=== PATIENT | female | born 1970 | race Caucasian/White ===

== ENCOUNTER 2017-09-15 07:32 | Inpatient (IN) | payer MEDICAID ==
[~2017-09-15] VITALS: Ht 162.6 cm; Wt 92.2 kg
[2017-09-15] MEDS ORDERED: SODIUM CHLORIDE 0.9% 1,000ML IVBOLUS ONE ×2 (08:30→09:30)
[2017-09-15 08:49] LABS: BASOPHILS # (AUTO) 0.01 x10^3/uL (0-0.1); BASOPHILS % (AUTO) 0 % (0-1); EOSINOPHILS % (AUTO) 5 % (1-7); LYMPHOCYTES # (AUTO) 1.96 x10^3/uL (1-3.4); LYMPHOCYTES % (AUTO) 19 % (22-44); MD NO; MEAN CORPUSCULAR HEMOGLOBIN 30.8 pg (27.0-34.8); MEAN CORPUSCULAR HGB CONC 33.9 g/dL (32.4-35.8); MEAN CORPUSCULAR VOLUME 90.8 fL (80-100); MEAN PLATELET VOLUME 6.6 fL (7.4-10.4); MONOCYTES # (AUTO) 0.73 x10^3/uL (0.2-0.8); MONOCYTES % (AUTO) 7 % (2-9); NEUTROPHILS # (AUTO) 7.23 x10^3/uL (1.8-6.8); NEUTROPHILS % (AUTO) 69 % (42-75); PLATELET COUNT 285 x10^3/uL (130-400); RED BLOOD COUNT 5.26 x10^6/uL (3.82-5.3); RED CELL DISTRIBUTION WIDTH 18.5 % (9.6-15.2)
[2017-09-15 09:05] LABS: ALANINE AMINOTRANSFERASE 32 U/L (12-78); ANION GAP 16 mmol/L (5-15); CALCIUM 9.3 mg/dL (8.5-10.1); CHLORIDE 103 mmol/L (98-107); INTERNATIONAL NORMALIZED RATIO 0.98 (0.93-1.1); PROTHROMBIN TIME 10.2 Seconds (9.6-11.5)
[2017-09-15 09:08] LABS: ALKALINE PHOSPHATASE 128 U/L (45-117); BILIRUBIN,TOTAL 0.8 mg/dL (0.2-1.0); TOTAL PROTEIN 8.3 g/dL (6.4-8.2)
[2017-09-15] MEDS ORDERED: PIPERACILLIN/TAZO/PMX 4.5GM 100 ML IVPB ONE (09:30)
[2017-09-15 10:16] LABS: MICROSCOPIC INDICATED
[2017-09-15 10:19] LABS: CULTURE INDICATED? YES
[2017-09-15] MEDS ORDERED: ALBUTEROL/IPRATROPIUM 2.5MG/0.5MG, 3 ML NPPB ONE (10:30)
[2017-09-15] MEDS ORDERED: ALBUTEROL/IPRATROPIUM 2.5MG/0.5MG, 3 ML ONE (10:38)
[2017-09-15] MEDS ORDERED: METH15TA PO (10:57)
[2017-09-15] MEDS ORDERED: VANCOMYCIN PER PHARMACY MC PRN (11:30)
[2017-09-15] MEDS ORDERED: PHARMACOKINETIC CONSULTATION MC ONE (11:30)
[2017-09-15] MEDS ORDERED: VANCOMYCIN 1,600 MG in SODIUM CHLORIDE 0.9% 250 ML IV ONE (12:00)
[2017-09-15 12:07] LABS: FREE T4 (FREE THYROXINE) 0.58 ng/dL (0.76-1.46); THYROID STIMULATING HORMONE 3.56 mIU/L (0.358-3.740)
[2017-09-15] MEDS ORDERED: DOCUSATE 100 MG CAPSULE PO PRN (12:30)
[2017-09-15] MEDS ORDERED: PHARMACY MAY ADJ FOR RENAL FX MC PRN (12:30)
[2017-09-15] MEDS ORDERED: FUROSEMIDE 40 MG/4 ML IV ONE (12:30)
[2017-09-15] MEDS ORDERED: BISACODYL 10 MG SUPP PR PRN (12:30)
[2017-09-15] MEDS ORDERED: ACETAMINOPHEN 325 MG TABLET PO PRN (12:30)
[2017-09-15] MEDS ORDERED: hydrALAzine 20 MG/ML, 1ML IVPush PRN (12:30)
[2017-09-15] MEDS ORDERED: ONDANSETRON 2MG/ML, 2ML IVPush PRN (12:30)
[2017-09-15] MEDS ORDERED: POLYETHYLENE GLYCOL 17 GM PACKET PO PRN (12:30)
[2017-09-15] MEDS ORDERED: PIPERACILLIN/TAZO/PMX 3.375GM 50 ML IV SCH (13:30)
[2017-09-15 13:44] VITALS: BP 116/61
[2017-09-15] MEDS: LINEZOLID PMX 600MG/300ML 300 ML IV SCH (14:30)
[2017-09-15] MEDS: HEPARIN 5,000 UNITS/ML, 1ML SQ SCH (16:31)
[2017-09-15] MEDS: LACTATED RINGERS 1,000 ML IV SCH (16:39)
[2017-09-15 17:12] LABS: RAPID INFLUENZA A Negative (Negative); RAPID INFLUENZA B Negative (Negative)
[2017-09-15 18:44] VITALS: BP 95/63
[2017-09-15 19:26] LABS: TROPONIN I < 0.015 ng/mL (0.000-0.045)
[2017-09-15] MEDS: PIPERACILLIN/TAZO 3.375 GM in DEXTROSE 5% 50 ML IV SCH (20:20)
[2017-09-15] MEDS: HYDROcodone/APAP 5/325 TABLET PO PRN (20:20)
[2017-09-15 20:24] LABS: TROPONIN I < 0.015 ng/mL (0.000-0.045)
[2017-09-16] MEDS: LACTATED RINGERS 1,000 ML IV SCH (00:15)
[2017-09-16] MEDS: HEPARIN 5,000 UNITS/ML, 1ML SQ SCH ×3 (00:15→17:14)
[2017-09-16 00:52] VITALS: BP 100/67
[2017-09-16 01:09] LABS: TROPONIN I < 0.015 ng/mL (0.000-0.045)
[2017-09-16] MEDS: PIPERACILLIN/TAZO 3.375 GM in DEXTROSE 5% 50 ML IV SCH ×4 (02:35→20:10)
[2017-09-16 03:02] LABS: CLOSTRIDIUM DIFFICILE ANTIGEN NEGATIVE; CLOSTRIDIUM DIFFICILE TOXIN NEGATIVE (Negative)
[2017-09-16] MEDS: LINEZOLID PMX 600MG/300ML 300 ML IV SCH ×2 (03:12→15:48)
[2017-09-16 06:05] LABS: BASOPHILS # (AUTO) 0.01 x10^3/uL (0-0.1); BASOPHILS % (AUTO) 0 % (0-1); EOSINOPHILS # (AUTO) 0.47 x10^3/uL (0-0.4); EOSINOPHILS % (AUTO) 8 % (1-7); LYMPHOCYTES # (AUTO) 1.81 x10^3/uL (1-3.4); LYMPHOCYTES % (AUTO) 30 % (22-44); MD NO; MEAN CORPUSCULAR HEMOGLOBIN 30.8 pg (27.0-34.8); MEAN CORPUSCULAR HGB CONC 33.7 g/dL (32.4-35.8); MEAN CORPUSCULAR VOLUME 91.3 fL (80-100); MEAN PLATELET VOLUME 6.6 fL (7.4-10.4); MONOCYTES # (AUTO) 0.41 x10^3/uL (0.2-0.8); MONOCYTES % (AUTO) 7 % (2-9); NEUTROPHILS # (AUTO) 3.39 x10^3/uL (1.8-6.8); NEUTROPHILS % (AUTO) 56 % (42-75); PLATELET COUNT 215 x10^3/uL (130-400); RED BLOOD COUNT 4.38 x10^6/uL (3.82-5.3); RED CELL DISTRIBUTION WIDTH 18.6 % (9.6-15.2)
[2017-09-16 06:12] LABS: CALCIUM 8.4 mg/dL (8.5-10.1); CHLORIDE 113 mmol/L (98-107)
[2017-09-16 06:16] LABS: ALANINE AMINOTRANSFERASE 23 U/L (12-78); ALBUMIN 3.4 g/dL (3.4-5.0); ALKALINE PHOSPHATASE 93 U/L (45-117); ANION GAP 9 mmol/L (5-15); BILIRUBIN,TOTAL 0.7 mg/dL (0.2-1.0); CREATININE 1.77 mg/dL (0.55-1.02); TOTAL PROTEIN 6.8 g/dL (6.4-8.2)
[2017-09-16 08:19] VITALS: BP 102/73
[2017-09-16] MEDS ORDERED: LACTATED RINGERS 1,000 ML IV SCH (12:30)
[2017-09-16 14:48] VITALS: BP 159/93
[2017-09-16 20:00] VITALS: BP 130/72
[2017-09-16] MEDS: HYDROcodone/APAP 5/325 TABLET PO PRN (23:55)
[2017-09-17] MEDS: PIPERACILLIN/TAZO 3.375 GM in DEXTROSE 5% 50 ML IV SCH ×2 (02:29→08:12)
[2017-09-17] MEDS: HEPARIN 5,000 UNITS/ML, 1ML SQ SCH (02:30)
[2017-09-17 02:41] VITALS: BP 135/84
[2017-09-17] MEDS: LINEZOLID PMX 600MG/300ML 300 ML IV SCH (03:10)
[2017-09-17 05:57] LABS: ANION GAP 9 mmol/L (5-15); CALCIUM 9.1 mg/dL (8.5-10.1); CHLORIDE 110 mmol/L (98-107)
[2017-09-17 05:58] LABS: CREATININE 1.78 mg/dL (0.55-1.02)
[2017-09-17 06:04] LABS: BASOPHILS # (AUTO) 0.01 x10^3/uL (0-0.1); BASOPHILS % (AUTO) 0 % (0-1); EOSINOPHILS # (AUTO) 0.02 x10^3/uL (0-0.4); EOSINOPHILS % (AUTO) 0 % (1-7); LYMPHOCYTES # (AUTO) 1.35 x10^3/uL (1-3.4); LYMPHOCYTES % (AUTO) 14 % (22-44); MD NO; MEAN CORPUSCULAR HEMOGLOBIN 30.7 pg (27.0-34.8); MEAN CORPUSCULAR HGB CONC 33.5 g/dL (32.4-35.8); MEAN CORPUSCULAR VOLUME 91.8 fL (80-100); MEAN PLATELET VOLUME 6.9 fL (7.4-10.4); MONOCYTES # (AUTO) 0.35 x10^3/uL (0.2-0.8); MONOCYTES % (AUTO) 4 % (2-9); NEUTROPHILS # (AUTO) 7.73 x10^3/uL (1.8-6.8); NEUTROPHILS % (AUTO) 82 % (42-75); PLATELET COUNT 240 x10^3/uL (130-400); RED CELL DISTRIBUTION WIDTH 18.4 % (9.6-15.2)
[2017-09-17 06:25] VITALS: BP 144/84
[2017-09-17] MEDS ORDERED: CEFD300C37 PO (11:16)
[2017-09-17] MEDS ORDERED: LINE600T37 PO (11:16)
[2017-09-17 12:13] VITALS: BP 132/86
== END 2017-09-17 12:45 | disposition home or self-care (01) | DRG 872 ==
LOC: ED 08:23 → EDIP 10:47 → 4WST 13:17
PROVIDERS: ADMIT Family Medicine; ATTEND Family Medicine
DX: A41.9 Sepsis, unspecified organism (principal); E87.2 Acidosis; N17.9 Acute kidney failure, unspecified; D49.7 Neoplasm of unspecified behavior of endocrine glands and other parts of nervous system; M06.9 Rheumatoid arthritis, unspecified; M19.90 Unspecified osteoarthritis, unspecified site; J06.9 Acute upper respiratory infection, unspecified
CPT/HCPCS: 36415; 71045; 71250; 80048; 80053; 81001; 82164; 82436; 82570; 83605; 83735; 84100; 84133; 84145; 84300; 84439; 84443; 84484; 85025; 85610; 87040; 87070; 87081; 87086; 87205; 87324; 87400; 87880; 93005; 94640; 96360; 96361; J1644; J2020; J2543; J3370; J7620; J7030; J7050; J7120; J7512

== ENCOUNTER 2018-03-15 19:53 | Emergency (ER) | payer SELFPAY ==
[~2018-03-15] VITALS: Ht 162.6 cm; Wt 89.4 kg
[~2018-03-15 19:53] MED LIST: CEFD300C37 PO; LINE600T37 PO; METH15TA PO
[2018-03-15] MEDS ORDERED: ALBUTEROL/IPRATROPIUM 2.5MG/0.5MG, 3 ML ONE (20:26)
[2018-03-15] MEDS ORDERED: ALBUTEROL/IPRATROPIUM 2.5MG/0.5MG, 3 ML NPPB ONE (20:30)
[2018-03-15 21:20] LABS: BASOPHILS # (AUTO) 0.05 x10^3/uL (0-0.1); BASOPHILS % (AUTO) 1 % (0-1); EOSINOPHILS # (AUTO) 0.38 x10^3/uL (0-0.4); EOSINOPHILS % (AUTO) 6 % (1-7); LYMPHOCYTES # (AUTO) 1.75 x10^3/uL (1-3.4); LYMPHOCYTES % (AUTO) 28 % (22-44); MD NO; MEAN CORPUSCULAR HEMOGLOBIN 31.3 pg (27.0-34.8); MEAN CORPUSCULAR HGB CONC 35.2 g/dL (32.4-35.8); MEAN CORPUSCULAR VOLUME 88.9 fL (80-100); MONOCYTES # (AUTO) 0.12 x10^3/uL (0.2-0.8); MONOCYTES % (AUTO) 2 % (2-9); NEUTROPHILS % (AUTO) 63 % (42-75); PLATELET COUNT 135 x10^3/uL (130-400); RED BLOOD COUNT 5.06 x10^6/uL (3.82-5.3); RED CELL DISTRIBUTION WIDTH 14.5 % (9.6-15.2)
[2018-03-15 21:25] LABS: ALBUMIN 3.7 g/dL (3.4-5.0); ANION GAP 8 mmol/L (5-15); CALCIUM 8.4 mg/dL (8.5-10.1); CHLORIDE 108 mmol/L (98-107); CREATININE 1.47 mg/dL (0.55-1.02)
[2018-03-15 21:47] VITALS: BP 138/70
== END 2018-03-15 22:15 | disposition home or self-care (01) ==
LOC: ED 22:00
DX: J20.9 Acute bronchitis, unspecified (principal)
CPT/HCPCS: 36415; 71046; 80048; 82040; 85025; 94640; 99285; J7620

== ENCOUNTER 2018-05-24 12:40 | Emergency (ER) | payer OTHER ==
[~2018-05-24] VITALS: Ht 162.6 cm; Wt 89.8 kg
[2018-05-24] MEDS ORDERED: HYDROcodone/APAP 5/325 TABLET ONE (13:45)
[2018-05-24] MEDS ORDERED: HYDROcodone/APAP 5/325 TABLET PO ONE (14:00)
[2018-05-24 15:08] VITALS: BP 148/79
== END 2018-05-24 15:18 | disposition home or self-care (01) ==
LOC: ED 15:12
DX: S42.201A Unspecified fracture of upper end of right humerus, initial encounter for closed fracture (principal); M06.9 Rheumatoid arthritis, unspecified; W01.0XXA Fall on same level from slipping, tripping and stumbling without subsequent striking against object, initial encounter; Y93.89 Activity, other specified; Y92.69 Other specified industrial and construction area as the place of occurrence of the external cause; Y99.8 Other external cause status
CPT/HCPCS: 99283

== ENCOUNTER 2018-11-18 21:43 | Emergency (ER) | payer OTHER ==
[~2018-11-18] VITALS: Ht 162.6 cm; Wt 90.9 kg
--- NOTE | 2018-11-18 21:54 | NUR ---
assessment made. chart up for MD to see.
[2018-11-18] MEDS ORDERED: LIDOCAINE 2% VISCOUS 15 ML UDC MM STA (22:01)
[2018-11-18] MEDS ORDERED: LIDOCAINE-MPF 1%, 5ML ONE (22:05)
[2018-11-18] MEDS ORDERED: LIDOCAINE 2% VISCOUS 15 ML UDC ONE (22:05)
[2018-11-18] MEDS ORDERED: HYDROcodone/APAP 5/325 TABLET ONE (22:06)
--- NOTE | 2018-11-18 22:15 | NUR ---
patient medicated for pain.
[2018-11-18] MEDS ORDERED: LIDOCAINE 1%, 10ML INFIL ONE (22:30)
[2018-11-18] MEDS ORDERED: HYDROcodone/APAP 5/325 TABLET PO ONE (22:30)
--- NOTE | 2018-11-18 22:36 | NUR ---
I & D performed by ART.
[2018-11-18 22:43] VITALS: BP 132/81
--- NOTE | 2018-11-18 22:43 | NUR ---
patient discharged with prescription and instruction. verbalized understanding.
== END 2018-11-18 22:46 | disposition home or self-care (01) ==
LOC: ED 21:52
DX: K04.7 Periapical abscess without sinus (principal)
CPT/HCPCS: 41800; 99283; J3490

== ENCOUNTER 2019-07-31 03:04 | Emergency (ER) | payer OTHER ==
[~2019-07-31] VITALS: Ht 162.6 cm; Wt 90.4 kg
[~2019-07-31 03:04] MED LIST changes: +LINE600T12 PO; -LINE600T37 PO
--- NOTE | 2019-07-31 03:26 | NUR ---
INITIAL CONTACT WITH PT. ASSESSMENT DONE. MD AT BEDSIDE.
--- NOTE | 2019-07-31 03:28 | NUR ---
MARITZA RN: RT PAGED.
[2019-07-31] MEDS ORDERED: ALBUTEROL SULFATE 2.5 MG/3 ML NPPB ONE (03:30)
[2019-07-31 03:41] LABS: BASOPHILS # (AUTO) 0.02 x10^3/uL (0-0.1); BASOPHILS % (AUTO) 0 % (0-1); EOSINOPHILS # (AUTO) 0.39 x10^3/uL (0-0.4); EOSINOPHILS % (AUTO) 6 % (1-7); LYMPHOCYTES % (AUTO) 19 % (22-44); MD NO; MEAN CORPUSCULAR HEMOGLOBIN 29.5 pg (27.0-34.8); MEAN CORPUSCULAR HGB CONC 34.1 g/dL (32.4-35.8); MEAN CORPUSCULAR VOLUME 86.6 fL (80-100); MEAN PLATELET VOLUME 7.5 fL (7.4-10.4); MONOCYTES # (AUTO) 0.41 x10^3/uL (0.2-0.8); MONOCYTES % (AUTO) 6 % (2-9); NEUTROPHILS % (AUTO) 69 % (42-75); PLATELET COUNT 125 x10^3/uL (130-400); RED BLOOD COUNT 5.78 x10^6/uL (3.82-5.3); RED CELL DISTRIBUTION WIDTH 14.3 % (9.6-15.2)
[2019-07-31] MEDS ORDERED: ALBUTEROL/IPRATROPIUM 2.5MG/0.5MG, 3 ML ONE (03:47)
[2019-07-31 03:51] LABS: ANION GAP 7 mmol/L (5-15); CALCIUM 9.3 mg/dL (8.5-10.1); CHLORIDE 107 mmol/L (98-107); CREATININE 1.82 mg/dL (0.55-1.02)
[2019-07-31 03:54] LABS: TROPONIN I < 0.015 ng/mL (0.000-0.045)
--- NOTE | 2019-07-31 04:11 | NUR ---
REPORT TO BALA SANABRIA. CARE RELEASED.
--- NOTE | 2019-07-31 04:18 | NUR ---
REPROT RECEIVED FROM BALA MAJOR. PLAN OF CARE DISCUSSED.
[2019-07-31 04:34] VITALS: BP 114/71
== END 2019-07-31 04:37 | disposition home or self-care (01) ==
LOC: ED 04:22
DX: J45.909 Unspecified asthma, uncomplicated (principal); M06.9 Rheumatoid arthritis, unspecified
CPT/HCPCS: 36415; 71045; 80048; 82040; 84484; 85025; 93005; 94640; 99284; J7512; J7613

== ENCOUNTER 2019-12-31 21:17 | Emergency (ER) | payer SELFPAY ==
[~2019-12-31] VITALS: Ht 162.6 cm; Wt 86.0 kg
--- NOTE | 2019-12-31 21:30 | NUR ---
assumed care of pt. pt here for R foot pain since last nocs. pt reports swelling and difficulty walking. denies trauma. pt reports no relief of pain after medications [employer]. foot elevated for comfort. family at bedside. med student at bedside for eval
[2019-12-31] MEDS ORDERED: MORPHINE SULFATE 4 MG/ML, 1ML IVPush PRN (22:00)
[2019-12-31] MEDS ORDERED: KETOROLAC 30 MG/1 ML IVPush ONE (22:00)
[2019-12-31] MEDS ORDERED: KETOROLAC 30 MG/1 ML ONE (22:10)
[2019-12-31] MEDS ORDERED: MORPHINE SULFATE 4 MG/ML, 1ML ONE (22:10)
[2019-12-31 22:24] LABS: BASOPHILS # (AUTO) 0.02 x10^3/uL (0-0.1); BASOPHILS % (AUTO) 0 % (0-1); EOSINOPHILS # (AUTO) 0.27 x10^3/uL (0-0.4); EOSINOPHILS % (AUTO) 3 % (1-7); HCT (SEDRATE) 45.9 % (34.6-47.8); LYMPHOCYTES # (AUTO) 1.77 x10^3/uL (1-3.4); LYMPHOCYTES % (AUTO) 21 % (22-44); MD NO; MEAN CORPUSCULAR HEMOGLOBIN 29.2 pg (27.0-34.8); MEAN CORPUSCULAR HGB CONC 33.5 g/dL (32.4-35.8); MEAN CORPUSCULAR VOLUME 86.9 fL (80-100); MEAN PLATELET VOLUME 7.9 fL (7.4-10.4); MONOCYTES # (AUTO) 0.45 x10^3/uL (0.2-0.8); MONOCYTES % (AUTO) 5 % (2-9); NEUTROPHILS # (AUTO) 5.97 x10^3/uL (1.8-6.8); NEUTROPHILS % (AUTO) 70 % (42-75); PLATELET COUNT 132 x10^3/uL (130-400); RED BLOOD COUNT 5.31 x10^6/uL (3.82-5.3); RED CELL DISTRIBUTION WIDTH 15.5 % (9.6-15.2)
--- NOTE | 2019-12-31 22:30 | NUR ---
pt has been medicated per order. pt advisednot to drive after morphine, pt verbalized understanding/ pt daughter at bedside to drive her home. warm blankets given and positioning for comfort
[2019-12-31 22:36] LABS: ALBUMIN 3.7 g/dL (3.4-5.0); ANION GAP 7 mmol/L (5-15); CALCIUM 9.3 mg/dL (8.5-10.1); CHLORIDE 104 mmol/L (98-107); CREATININE 1.92 mg/dL (0.55-1.02)
--- NOTE | 2019-12-31 22:43 | NUR ---
RECEIVED BS REPORT FROM BALA TARIQ TO ASSUME CARE. CHART UP FOR RECHECK BY SHAHRAM; AWAITING DISPO.
--- NOTE | 2019-12-31 22:49 | NUR ---
pt reports that her pain has decreased from 04/05 to 12/04. chart up for MD recheck. report to Carmita MCKENNA
--- NOTE | 2019-12-31 23:30 | NUR ---
PT. CHART UP FOR REHCECK BY SHAHRAM.
[2020-01-01 00:11] VITALS: BP 112/69
--- NOTE | 2020-01-01 01:32 | NUR ---
Patient/Caregiver given discharge instructions and they have confirmed that they understand the instructions. Patient ambulatory with steady gait.
== END 2020-01-01 01:33 | disposition home or self-care (01) ==
LOC: ED 21:47
DX: M10.071 Idiopathic gout, right ankle and foot (principal); M19.90 Unspecified osteoarthritis, unspecified site
CPT/HCPCS: 36415; 73610; 80048; 82040; 84550; 85025; 85651; 86140; 96374; 96375; 99285; J1885; J2270

== ENCOUNTER 2020-04-13 21:23 | Emergency (ER) | payer SELFPAY ==
[~2020-04-13] VITALS: Ht 162.6 cm; Wt 90.0 kg
[2020-04-13 21:28] VITALS: BP 152/63
[2020-04-13] MEDS ORDERED: KETOROLAC 60 MG/2 ML ONE (21:51)
[2020-04-13] MEDS ORDERED: OXYcodone/APAP 5/325MG TABLET ONE (21:51)
[2020-04-13] MEDS ORDERED: COLCHICINE 0.6 MG CAPSULE ONE (21:51)
[2020-04-13] MEDS ORDERED: OXYcodone/APAP 5/325MG TABLET PO ONE (22:00)
[2020-04-13] MEDS ORDERED: COLCHICINE 0.6 MG CAPSULE PO ONE (22:00)
[2020-04-13] MEDS ORDERED: KETOROLAC 60 MG/2 ML IM ONE (22:00)
== END 2020-04-13 23:31 | disposition home or self-care (01) ==
LOC: ED 22:02
DX: M10.072 Idiopathic gout, left ankle and foot (principal)
CPT/HCPCS: 73610; 96372; 99283; J1885

== ENCOUNTER 2020-10-14 09:31 | Observation (INO) | payer BC ==
[~2020-10-14] VITALS: Ht 162.6 cm; Wt 95.0 kg
--- NOTE | 2020-10-14 09:47 | NUR ---
CHEST TIGHTNESS W/ EXERTION X2 WEEKS. DENIES CARDIAC HX.AMIE CORDOVA AT BEDSIDE FOR EVALUATION. PT ATTACHED TO ALL MONITORS. VSS. BARNHART.
[2020-10-14] MEDS ORDERED: ASPIRIN 81 MG TABLET CHEW ONE (09:54)
[2020-10-14] MEDS ORDERED: SODIUM CHLORIDE FLUSH 10ML SYR IVF ONE (10:00)
[2020-10-14] MEDS ORDERED: ASPIRIN 81 MG TABLET CHEW PO ONE (10:00)
[2020-10-14 10:33] LABS: ALBUMIN 4.1 g/dL (3.4-5.0); ANION GAP 6 mmol/L (5-15); CALCIUM 8.7 mg/dL (8.5-10.1); CHLORIDE 103 mmol/L (98-107)
[2020-10-14 10:35] LABS: BASOPHILS % (AUTO) 1 % (0-1); EOSINOPHILS % (AUTO) 5 % (1-7); LYMPHOCYTES % (AUTO) 26 % (22-44); MD NO; MEAN CORPUSCULAR HEMOGLOBIN 30.2 pg (27.0-34.8); MEAN CORPUSCULAR HGB CONC 35.2 g/dL (32.4-35.8); MEAN PLATELET VOLUME 8.7 fL (7.4-10.4); MONOCYTES % (AUTO) 5 % (2-9); NEUTROPHILS % (AUTO) 64 % (42-75); PLATELET COUNT 121 x10^3/uL (130-400); RED BLOOD COUNT 5.02 x10^6/uL (3.82-5.3)
[2020-10-14 10:39] LABS: ALANINE AMINOTRANSFERASE 47 U/L (12-78); ALKALINE PHOSPHATASE 151 U/L (45-117); BILIRUBIN,TOTAL 0.5 mg/dL (0.2-1.0); CREATININE 1.57 mg/dL (0.55-1.02); TOTAL PROTEIN 7.8 g/dL (6.4-8.2); TROPONIN I < 0.015 ng/mL (0.000-0.045)
--- NOTE | 2020-10-14 11:34 | NUR ---
UNR MD'S TO BEDSIDE FOR EVALUATION.
[2020-10-14] MEDS ORDERED: ONDANSETRON ODT 4 MG PO PRN (12:00)
[2020-10-14] MEDS ORDERED: OXYcodone IR 5MG TABLET PO PRN (12:00)
[2020-10-14] MEDS ORDERED: NITROGLYCERIN 0.4 MG BOTTLE (25 TABS) SL PRN (12:00)
[2020-10-14] MEDS ORDERED: ACETAMINOPHEN 325 MG TABLET PO PRN (12:00)
[2020-10-14] MEDS ORDERED: hydrALAzine 20 MG/ML, 1ML IVPush PRN (12:00)
[2020-10-14 12:25] VITALS: BP 122/78
[2020-10-14] MEDS: HEPARIN 5,000 UNITS/ML, 1ML SQ SCH (13:56)
[2020-10-14 15:29] VITALS: BP 148/81
[2020-10-14] MEDS: INSULIN LISPRO 100 UNITS/ML, PEN SQ-INSULIN SCH ×2 (16:17→20:57)
[2020-10-14 18:37] LABS: TROPONIN I < 0.015 ng/mL (0.000-0.045)
[2020-10-14 19:36] VITALS: BP 110/70
[2020-10-14] MEDS ORDERED: ATORVASTATIN 40 MG TABLET PO SCH (21:00)
[2020-10-15 01:06] LABS: TROPONIN I < 0.015 ng/mL (0.000-0.045)
[2020-10-15] MEDS: HEPARIN 5,000 UNITS/ML, 1ML SQ SCH ×2 (01:09→13:00)
[2020-10-15 01:17] VITALS: BP 118/80
[2020-10-15 05:33] LABS: BASOPHILS % (AUTO) 1 % (0-1); EOSINOPHILS % (AUTO) 6 % (1-7); LYMPHOCYTES % (AUTO) 36 % (22-44); MEAN CORPUSCULAR HGB CONC 34.6 g/dL (32.4-35.8); MEAN PLATELET VOLUME 8.6 fL (7.4-10.4); MONOCYTES % (AUTO) 5 % (2-9); NEUTROPHILS % (AUTO) 52 % (42-75); PLATELET COUNT 113 x10^3/uL (130-400); RED BLOOD COUNT 4.83 x10^6/uL (3.82-5.3); RED CELL DISTRIBUTION WIDTH 15.1 % (9.6-15.2)
[2020-10-15 05:46] LABS: ANION GAP 4 mmol/L (5-15); CALCIUM 8.9 mg/dL (8.5-10.1); CHLORIDE 105 mmol/L (98-107)
[2020-10-15 05:50] LABS: MD NO
[2020-10-15 05:51] LABS: CHOL/HDL RATIO 10.8; CHOLESTEROL, TOTAL 216 mg/dL (140-239); CREATININE 1.65 mg/dL (0.55-1.02); HDL CHOL % 9 % (28-40); HDL CHOLESTEROL (DIRECT) 20 mg/dL (40-60); TRIGLYCERIDES 560 mg/dL (50-200)
[2020-10-15] MEDS: INSULIN LISPRO 100 UNITS/ML, PEN SQ-INSULIN SCH ×2 (07:00→11:21)
[2020-10-15 07:49] VITALS: BP 131/81
[2020-10-15] MEDS ORDERED: FLUTICASONE NASAL SPRAY 16GM NAS SCH (09:00)
[2020-10-15] MEDS ORDERED: CETIRIZINE 10 MG TABLET PO SCH (09:00)
[2020-10-15] MEDS ORDERED: ASPIRIN 81 MG TABLET CHEW PO SCH (09:00)
[2020-10-15] MEDS ORDERED: REGADENOSON 0.4 MG/5 ML SYRINGE ONE (09:21)
[2020-10-15] MEDS ORDERED: CETI10TA18 PO (12:55)
[2020-10-15] MEDS ORDERED: ATOR40TA78 PO (12:55)
[2020-10-15] MEDS ORDERED: FLUT16SP24 NAS (12:55)
[2020-10-15] MEDS ORDERED: EMPA10TA PO (12:56)
== END 2020-10-15 15:43 | disposition home or self-care (01) ==
LOC: ED 11:14 → 5SO 11:15 → INTOOBSV 11:15 → DCLOUNGE 10-15 15:38
PROVIDERS: ADMIT Family Medicine; ATTEND Family Medicine
DX: R07.89 Other chest pain (principal); E11.65 Type 2 diabetes mellitus with hyperglycemia; J45.909 Unspecified asthma, uncomplicated; L40.9 Psoriasis, unspecified; E11.22 Type 2 diabetes mellitus with diabetic chronic kidney disease; N18.30 Chronic kidney disease, stage 3 unspecified; I25.10 Atherosclerotic heart disease of native coronary artery without angina pectoris; M10.9 Gout, unspecified; M06.9 Rheumatoid arthritis, unspecified; E78.1 Pure hyperglyceridemia; E78.5 Hyperlipidemia, unspecified; Z79.899 Other long term (current) drug therapy; Z86.011 Personal history of benign neoplasm of the brain; Z86.32 Personal history of gestational diabetes
CPT/HCPCS: 36415; 71045; 78452; 80048; 80053; 80061; 82962; 83036; 84484; 85025; 93005; 93017; 96372; 99285; A9502; G0378; J1644; J1815; J2785

== ENCOUNTER 2020-10-23 20:22 | Emergency (ER) | payer BC ==
[~2020-10-23] VITALS: Ht 162.6 cm; Wt 93.8 kg
[~2020-10-23 20:22] MED LIST changes: +ATOR40TA78 PO; +CETI10TA18 PO; +EMPA10TA PO; +FLUT16SP24 NAS
--- NOTE | 2020-10-23 20:39 | NUR ---
INITIAL PT CONTACT. PT PRESENTS TO ED C/O STERNAL AND LEFT SIDED CHEST PAIN WITH RADIATION TO LEFT ARM. PT HAS HX OF SAME, RECENT ADMISSION. PT DENIES ANY NAUSEA OR VOMITING. PT SITTING UPRIGHT ON GURNEY NADMoisés, VSS. PT PLACED ON CONTINUOUS PULSE OX AND CARDIAC MONITORING. PT PROVIDED WARM BLANKET. CALL LIGHT AND BELONGINGS WITHIN REACH. DAUGHTER AT BEDSIDE.
[2020-10-23] MEDS ORDERED: ASPIRIN 81 MG TABLET CHEW ONE (20:45)
[2020-10-23 20:58] LABS: BASOPHILS % (AUTO) 1 % (0-1); EOSINOPHILS % (AUTO) 4 % (1-7); LYMPHOCYTES % (AUTO) 19 % (22-44); MEAN CORPUSCULAR HEMOGLOBIN 29.9 pg (27.0-34.8); MEAN CORPUSCULAR HGB CONC 34.7 g/dL (32.4-35.8); MEAN PLATELET VOLUME 8.4 fL (7.4-10.4); MONOCYTES % (AUTO) 5 % (2-9); NEUTROPHILS % (AUTO) 71 % (42-75); PLATELET COUNT 135 x10^3/uL (130-400); RED BLOOD COUNT 5.03 x10^6/uL (3.82-5.3)
[2020-10-23] MEDS ORDERED: ASPIRIN 81 MG TABLET CHEW PO ONE (21:00)
[2020-10-23 21:04] LABS: MD NO
[2020-10-23 21:08] LABS: ALANINE AMINOTRANSFERASE 33 U/L (12-78); ANION GAP 6 mmol/L (5-15); CALCIUM 8.9 mg/dL (8.5-10.1); CHLORIDE 104 mmol/L (98-107); CREATININE 1.92 mg/dL (0.55-1.02)
[2020-10-23 21:13] LABS: ALKALINE PHOSPHATASE 149 U/L (45-117); BILIRUBIN,TOTAL 0.4 mg/dL (0.2-1.0); TOTAL PROTEIN 7.8 g/dL (6.4-8.2); TROPONIN I < 0.015 ng/mL (0.000-0.045)
[2020-10-23] MEDS ORDERED: LORazepam 1MG TABLET ONE (21:20)
[2020-10-23] MEDS ORDERED: LORazepam 1MG TABLET PO ONE (21:30)
--- NOTE | 2020-10-23 23:02 | NUR ---
PT AMBULATORY WITH STEADY GAIT TO BATHROOM WITH THIS RN. PT REPORTS IMPROVED PAIN FOLLOWING [employer]IATE. PT DENIES ANY ADDITIONAL NEEDS AT THIS TIME. CALL LIGHT AND PERSONAL BELONGINGS WITHIN REACH.
--- NOTE | 2020-10-23 23:57 | NUR ---
PT REPOSITIONED ON [facility] AND PROVIDED A PILLOW PER REEQUEST. PT DENIES ANY ADDITIONAL NEEDS AT THIS TIME. CALL LIGHT AND BELONGINGS WITHIN REACH.
--- NOTE | 2020-10-24 01:24 | NUR ---
TASK RN: LAB AT BEDSIDE FOR REPEAT LABS
[2020-10-24 01:48] LABS: TROPONIN I < 0.015 ng/mL (0.000-0.045)
--- NOTE | 2020-10-24 02:13 | NUR ---
PT AMBULATORY WITH STEADY GAIT WITH THIS RN TO BATHROOM. AWAITING ERP FOR RE EVAL.
[2020-10-24 02:51] VITALS: BP 116/72
--- NOTE | 2020-10-24 02:52 | NUR ---
Patient given discharge instructions and they have confirmed that they understand the instructions. Patient ambulatory with steady gait.
== END 2020-10-24 02:54 | disposition home or self-care (01) ==
LOC: ED 21:13
DX: E11.22 Type 2 diabetes mellitus with diabetic chronic kidney disease (principal); N18.9 Chronic kidney disease, unspecified; M10.9 Gout, unspecified; R07.89 Other chest pain; R06.00 Dyspnea, unspecified; R06.02 Shortness of breath; Z87.891 Personal history of nicotine dependence
CPT/HCPCS: 36415; 71045; 80053; 84484; 85025; 93005; 99285

== ENCOUNTER 2021-01-06 07:48 | Emergency (ER) | payer BC, OTHER ==
[~2021-01-06] VITALS: Ht 162.6 cm; Wt 95.0 kg
[2021-01-06 08:24] LABS: BASOPHILS % (AUTO) 1 % (0-1); EOSINOPHILS % (AUTO) 6 % (1-7); LYMPHOCYTES % (AUTO) 25 % (22-44); MEAN CORPUSCULAR HEMOGLOBIN 28.4 pg (27.0-34.8); MEAN CORPUSCULAR HGB CONC 34.4 g/dL (32.4-35.8); MEAN PLATELET VOLUME 7.1 fL (7.4-10.4); MONOCYTES % (AUTO) 6 % (2-9); NEUTROPHILS % (AUTO) 63 % (42-75); PLATELET COUNT 153 x10^3/uL (130-400); RED BLOOD COUNT 6.15 x10^6/uL (3.82-5.3); RED CELL DISTRIBUTION WIDTH 15.5 % (9.6-15.2)
[2021-01-06 08:36] LABS: ANION GAP 6 mmol/L (5-15); CALCIUM 9.6 mg/dL (8.5-10.1); CHLORIDE 106 mmol/L (98-107); CREATININE 1.51 mg/dL (0.55-1.02)
[2021-01-06 08:37] LABS: ALBUMIN 4.1 g/dL (3.4-5.0)
[2021-01-06 09:04] VITALS: BP 124/76
--- NOTE | 2021-01-06 09:04 | NUR ---
PT UPRIGHT ON GURNEY AWAKE & CALM, RESPONDS APPROP TO STAFF, NAD AT REST, NO NEEDS AT THIS TIME, CALL LIGHT WITHIN REACH.
--- NOTE | 2021-01-06 09:34 | NUR ---
Patient given discharge instructions and they have confirmed that they understand the instructions. Patient ambulatory with steady gait. NAD, all questions answered appropriately, denies additional needs at this time. No personal belongings left in room after discharge.
== END 2021-01-06 09:36 | disposition home or self-care (01) ==
LOC: ED 08:36
DX: I12.9 Hypertensive chronic kidney disease with stage 1 through stage 4 chronic kidney disease, or unspecified chronic kidney disease (principal); N18.30 Chronic kidney disease, stage 3 unspecified; E11.22 Type 2 diabetes mellitus with diabetic chronic kidney disease; L03.115 Cellulitis of right lower limb; J45.909 Unspecified asthma, uncomplicated; M19.90 Unspecified osteoarthritis, unspecified site
CPT/HCPCS: 36415; 80048; 82040; 85025; 99284

== ENCOUNTER 2021-03-20 08:37 | Emergency (ER) | payer OTHER ==
[~2021-03-20] VITALS: Ht 162.6 cm; Wt 89.0 kg
[2021-03-20 08:52] VITALS: BP 113/92
--- NOTE | 2021-03-20 09:27 | NUR ---
[id number]
--- NOTE | 2021-03-20 10:18 | NUR ---
nilX2
--- NOTE | 2021-03-20 13:41 | NUR ---
NILX3 AT [id number]
== END 2021-03-20 14:06 | disposition left against medical advice (07) ==
LOC: ED 09:07
DX: M25.571 Pain in right ankle and joints of right foot (principal); Z53.21 Procedure and treatment not carried out due to patient leaving prior to being seen by health care provider